=== PATIENT | male | born 1955 | race Caucasian/White ===

== ENCOUNTER 2023-02-22 16:51 | Emergency (ER) | payer OTHER ==
[~2023-02-22] VITALS: Ht 180.3 cm; Wt 105.4 kg
[2023-02-22] MEDS ORDERED: METO25TA4 PO (17:52)
[2023-02-22] MEDS ORDERED: METF10004 PO (17:52)
[2023-02-22] MEDS ORDERED: GABA-284 PO (17:52)
[2023-02-22] MEDS ORDERED: PREV15TA2 PO (17:52)
[2023-02-22] MEDS ORDERED: GABA-282 PO ×2 (17:52→17:53)
[2023-02-22] MEDS ORDERED: GLIM4TAB5 PO (17:55)
[2023-02-22] MEDS ORDERED: VENL75TA2 PO (17:57)
[2023-02-22] MEDS ORDERED: CELE0.09 PO (17:57)
[2023-02-22] MEDS ORDERED: JARD1TAB3 PO (17:58)
[2023-02-22] MEDS ORDERED: LIPI20TA PO (18:00)
[2023-02-22] MEDS ORDERED: CLOP75TA99 PO (18:01)
[2023-02-22] MEDS ORDERED: CO Q200C10 PO (18:02)
[2023-02-22] MEDS ORDERED: OXYC-1 PO (18:04)
[2023-02-22 18:15] VITALS: BP 128/72
[2023-02-22 18:36] VITALS: O2SAT 97
[2023-02-22 18:53] VITALS: TEMP 99.2
== END 2023-02-22 18:54 | disposition home or self-care (01) ==
LOC: EDBD 16:51 → M ED 16:51
DX: S32.018A Other fracture of first lumbar vertebra, initial encounter for closed fracture (principal); M47.896 Other spondylosis, lumbar region; V49.50XA Passenger injured in collision with unspecified motor vehicles in traffic accident, initial encounter; I25.10 Atherosclerotic heart disease of native coronary artery without angina pectoris; E11.9 Type 2 diabetes mellitus without complications; I10 Essential (primary) hypertension; Z86.73 Personal history of transient ischemic attack (TIA), and cerebral infarction without residual deficits; Z95.5 Presence of coronary angioplasty implant and graft; Z79.84 Long term (current) use of oral hypoglycemic drugs; Z79.899 Other long term (current) drug therapy; Z79.01 Long term (current) use of anticoagulants; Z88.0 Allergy status to penicillin; Z88.5 Allergy status to narcotic agent